=== PATIENT | female | born 1955 ===

== ENCOUNTER 2024-08-29 11:02 | Outpatient (RCR) | payer MEDICARE, OTHER, SELFPAY | END 2024-08-29 23:59 | disposition home or self-care (01) | LOC: RST 11:02 | PROVIDERS: ATTENDING PHYSICIAN Psychiatry & Neurology Neurology; FAMILY PHYSICIAN Internal Medicine | DX: G31.84 Mild cognitive impairment of uncertain or unknown etiology (principal); R51.9 Headache, unspecified; R47.89 Other speech disturbances | CPT/HCPCS: 92523 ==

== ENCOUNTER 2024-10-03 10:57 | Outpatient (RCR) | payer MEDICARE, OTHER, SELFPAY | END 2024-10-03 23:59 | disposition home or self-care (01) | LOC: RST 10:57 | PROVIDERS: ATTENDING PHYSICIAN Psychiatry & Neurology Neurology; FAMILY PHYSICIAN Internal Medicine | DX: G31.84 Mild cognitive impairment of uncertain or unknown etiology (principal); R47.02 Dysphasia (principal); R51.9 Headache, unspecified; R47.89 Other speech disturbances | CPT/HCPCS: 92507 ==

== ENCOUNTER 2024-10-26 13:46 | Outpatient (RCR) | payer MEDICARE, OTHER, SELFPAY | END 2024-10-26 23:59 | disposition home or self-care (01) | LOC: RST 13:46 | PROVIDERS: ATTENDING PHYSICIAN Psychiatry & Neurology Neurology; FAMILY PHYSICIAN Internal Medicine | DX: R47.02 Dysphasia (principal); G31.84 Mild cognitive impairment of uncertain or unknown etiology; R51.9 Headache, unspecified; R47.89 Other speech disturbances | CPT/HCPCS: 92507 ==

== ENCOUNTER 2025-01-24 07:05 | Outpatient (RCR) | payer MEDICARE, OTHER, SELFPAY | END 2025-01-24 23:59 | disposition home or self-care (01) | LOC: RST 07:05 | PROVIDERS: ATTENDING PHYSICIAN Psychiatry & Neurology Neurology; FAMILY PHYSICIAN Internal Medicine | DX: R47.02 Dysphasia (principal); G31.84 Mild cognitive impairment of uncertain or unknown etiology; R51.9 Headache, unspecified; R47.89 Other speech disturbances; G31.9 Degenerative disease of nervous system, unspecified; R41.841 Cognitive communication deficit | CPT/HCPCS: 92507 ==